=== PATIENT | male | born 2000 | race Caucasian/White ===

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

== ENCOUNTER 2019-03-19 21:38 | Emergency (ER) | payer OTHER ==
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
[2019-03-19 22:33] LABS: ABSOLUTE EOSINOPHILS # (AUTO) 0.1 10^3/uL (0.0-0.6); ABSOLUTE LYMPHOCYTES (AUTO) 1.6 10^3/uL (0.5-4.7); ABSOLUTE MONOCYTES (AUTO) 0.4 10^3/uL (0.1-1.4); ALBUMIN 4.8 g/dL (3.7-5.6); ALKALINE PHOSPHATASE 85 U/L (65-260); ANION GAP 12 (5-19); ASPARTATE AMINO TRANSFERASE 30 U/L (10-45); BASOPHILS % (AUTO) 0.4 % (0-2); BILIRUBIN,DIRECT 0.2 mg/dL (0.0-0.4); BILIRUBIN,TOTAL 0.6 mg/dL (0.2-1.3); BLOOD UREA NITROGEN 18 mg/dL (7-20); CALCIUM 9.3 mg/dL (8.4-10.2); CARBON DIOXIDE 26 mmol/L (22-30); CHLORIDE 103 mmol/L (98-107); EOSINOPHILS % (AUTO) 1.2 % (0-6); GLUCOSE 108 mg/dL (75-110); HEMATOCRIT 42.9 % (37.9-51.0); HEMOGLOBIN 14.5 g/dL (13.5-17.0); LYMPHOCYTES % (AUTO) 22.4 % (13-45); MEAN CORPUSCULAR HEMOGLOBIN 28.5 pg (27.0-33.4); MEAN CORPUSCULAR HGB CONC 33.8 g/dL (32.0-36.0); MEAN CORPUSCULAR VOLUME 84 fl (80-97); MONOCYTES % (AUTO) 6.2 % (3-13); PLATELET COUNT 196 10^3/uL (150-450); POTASSIUM 3.9 mmol/L (3.6-5.0); RED BLOOD COUNT 5.09 10^6/uL (4.35-5.55); SEGMENTED NEUTROPHILS % (AUTO) 69.8 % (42-78); TOTAL CELLS COUNTED % (AUTO) 100 %; TOTAL PROTEIN 7.8 g/dL (6.3-8.2); WHITE BLOOD COUNT 7.2 10^3/uL (4.0-10.5)
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
[2019-03-20] MEDS ORDERED: FENTANYL CITRATE INJ/PF 100 MCG/2 ML AMPUL IV PRN (00:25)
[2019-03-20] MEDS ORDERED: BACITRACIN ZINC OINTMENT 15 GM TP ONE (00:25)
[2019-03-20] MEDS ORDERED: BACITRACIN ZINC OINTMENT 15 GM ONE (00:54)
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
[2019-03-20 01:40] VITALS: BP 129/72
== END 2019-03-20 01:38 | disposition home or self-care (01) ==
LOC: ER 21:38
DX: S22.32XA Fracture of one rib, left side, initial encounter for closed fracture (principal); R07.81 Pleurodynia; R07.9 Chest pain, unspecified; V87.7XXA Person injured in collision between other specified motor vehicles (traffic), initial encounter
CPT/HCPCS: 36415; 85025; 80053; 70450; 71260; 74177; J3490; J3010; 96374; 99284